=== PATIENT | female | born 1980 | race African-American/Black ===

== ENCOUNTER 2022-01-31 17:06 | Emergency (ER) | payer BC, SELFPAY ==
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
[2022-01-31 17:08] VITALS: BP 127/60; PULSE 82; RESP 18; TEMP 36.7; O2SAT 100
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
[2022-01-31 21:08] VITALS: BP 125/80; PULSE 80; RESP 19; O2SAT 100
== END 2022-01-31 21:09 | disposition home or self-care (01) ==
PROVIDERS: Emergency Provider Emergency Medicine
DX: S69.92XA Unspecified injury of left wrist, hand and finger(s), initial encounter (principal); S89.91XA Unspecified injury of right lower leg, initial encounter; V49.40XA Driver injured in collision with unspecified motor vehicles in traffic accident, initial encounter
CPT/HCPCS: 73140; 73564; 99284